=== PATIENT | male | born 1950 | race Caucasian/White ===

== ENCOUNTER → 2017-04-21 | Outpatient (CLI) | payer OTHER ==
[2016-07-19 11:10] VITALS: BP 98/54
[~2017-04-21] MED LIST: ALLO300T PO; EZET1TAB41 PO; FEBU80TA2 PO; LEVO500T59 PO; LIPITOR80 MG PO; METO50TA2 PO; WARF5TAB7 PO
--- NOTE | 2017-04-24 11:13 | PDOC ---
Provider Note Provider Note Pulmonary function test Patient underwent full pulmonary function tests at [facility] on April 21, 2017. Patient's FVC was 2.12 which was 47% predicted. His FEV1 was 1.47 which was 44% predicted. Patient's FEV1/ FVC ratio was reduced. There was good response to bronchodilators with 13% improvement in FVC and 16% improvement in FEV1. Lung volumes shows total lung capacity of 110% predicted and residual volume of 214% predicted. diffusion capacity was normal at 96% predicted . Impression 1. Moderate obstructive airway disease 2. Good response to bronchodilators 3. Lung volumes consistent with air trapping 4. Normal diffusion capacity. FADY LUNDY MD Apr 24, 2017 11:13
== END | disposition home or self-care (01) ==
LOC: PF 09:23
PROVIDERS: ATTEND Nurse Practitioner
DX: R06.09 Other forms of dyspnea (principal)
CPT/HCPCS: 94060; 94729

== ENCOUNTER 2017-05-03 09:23 | Inpatient (IN) | payer OTHER, MEDICARE ==
[~2017-05-03] VITALS: Ht 179.1 cm; Wt 97.7 kg
[~2017-05-03 09:23] MED LIST changes: +HYDROmorphone 2 MG/ML VIAL IV PRN; +IV RINGERS,LACTATED 1000ML 1,000 ML IV SCH; +LIDOCAINE 1% 1 ML SYRINGE. ID PRN; +METO25TA9 PO; +MORPHINE SULFATE 2 MG/ML DISP.SYRIN. IV PRN; +ONDANSETRON PF 4 MG/2 ML VIAL. IV PRN; +POTA20TA82 PO; +PROCHLORPERAZINE 10 MG/2 ML VIAL. IV PRN; +fentaNYL PF VIAL 100 MCG/2 ML VIAL IV PRN
[2017-05-03 10:30] LABS: CALCIUM 8.5 mg/dL (8.5-10.1); CREATININE 1.2 mg/dL (0.7-1.3); GFR 60.2; MAGNESIUM 2.3 mg/dL (1.8-2.4); POTASSIUM 4.2 mmol/L (3.5-5.1)
[2017-05-03 10:33] LABS: INR 1.6 (0.8-1.1); PROTHROMBIN TIME PATIENT 18.4 SEC (11.7-14.0)
[2017-05-03] MEDS ORDERED: LIDOCAINE 2% VISCOUS 15 ML SOLUTION. ONE (10:35)
[2017-05-03] MEDS ORDERED: BENZOCAINE ONE 20% MUCOSAL SPRAY. (10:35)
[2017-05-03] MEDS ORDERED: LIDOCAINE 2% TOPICAL JELLY 30GM TUBE. TP ONE (10:35)
[2017-05-03] MEDS ORDERED: SUCCINYLCHOLINE 200 MG/10 ML VIAL. ONE (10:48)
[2017-05-03] MEDS ORDERED: PROPOFOL 0 ML IV ONE (10:48)
[2017-05-03] MEDS: IV RINGERS,LACTATED 1000ML 1,000 ML IV SCH ×2 (11:01→19:01)
[2017-05-03] MEDS ORDERED: MIDAZOLAM HCL/PF 2 MG/2 ML VIAL. IV PRN (11:15)
[2017-05-03] MEDS ORDERED: 0.9 % SODIUM CHLORIDE 10 ML DISP.SYRIN. IV PRN (11:15)
[2017-05-03] MEDS ORDERED: LIDOCAINE 1% 1 ML SYRINGE. ID PRN (11:15)
[2017-05-03] MEDS ORDERED: fentaNYL PF VIAL 100 MCG/2 ML VIAL IV PRN ×2 (11:15)
[2017-05-03 12:00] VITALS: BP 145/51
[2017-05-03] MEDS ORDERED: FURO40TA4 PO (13:17)
--- NOTE | 2017-05-03 13:40 | PDOC ---
Provider Note Provider Note This is a 66 yo male, with a history of PAFIB, who was found to have atrial flutter with variable conduction at recent office visit. Patient scheduled for ENRIQUETA guided cardioversion today. Please see office note from 04/27/17 in physical chart for full H and P. INR noted to be subtherapeutic at 1.6. Procedure held. PE: general: NAD Lungs: CTA CV: S1, S2. IRR. Tele: a-flutter with variable rate. HR presently low 40's abd: soft/non-tender ext: warm. 2+ bilateral DP pulses. No edema neuro: alert and oriented Assessment 1. A-flutter 2. Subtherapeutic INR 3. Aortic valve replacement Plan: 1. Will initiate heparin infusion and admit overnight for anticoagulation therapy. Will proceed with ENRIQUETA guided cardioversion in am for atrial flutter. JAYY HUITRON APRN May 03, 2017 13:40
[2017-05-03] MEDS ORDERED: HEPARIN for IV BOLUS 10,000 UNIT/10 ML VIAL. IV PRN (14:15)
[2017-05-03] MEDS: HEPARIN 25,000UTS/500ML PREMIX 500 ML IV PRN (14:50)
[2017-05-03 15:02] VITALS: BP 144/54
[2017-05-03 19:25] VITALS: BP 147/66
[2017-05-03] MEDS ORDERED: WARFARIN 4 MG TABLET. PO ONE (22:00)
[2017-05-03 22:41] VITALS: BP 136/66
--- NOTE | 2017-05-04 00:51 | ACF ---
Admission Forms Criteria ATRIAL FIBRILLATION Clinical Indications for Admission to Inpatient Care (Place 'X' for any and all applicable criteria): Admission indicated for ANY ONE of the following(1)(2)(3)(4)(5) : [ ]I. Myocardial ischemia [ ]II. Dyspnea or hypoxemia [ ]III. Hemodynamic instability [ ]IV. Heart failure (e.g., pulmonary edema) (7) [ ]V. New-onset (less than 48 hours) atrial fibrillation with high risk for causing complications secondary to comorbidities (eg, symptomatic heart failure ) [ ]. Altered mental status [ ]VII. Syncope [ ]VIII. Patient has implantable cardioverter defibrillator that has fired more than once within past 24hr or needs immediate adjustment of settings that cannot be done other than in inpatient setting. (8) [ ]IX. Suspected accessory pathway (e.g., Ctqxc-Rgycqfguu-Memxk syndrome) on ECG [ ]X. Recent systemic thromboembolism (eg, stroke) [ ]XI. Medication toxicity (e.g., digitalis) causing arrhythmia(9) [ ]XII. Underlying medical condition that necessitates inpatient care (e.g., thyrotoxicosis, pneumonia) (10) [ ]XIII. Continuous ECG monitoring is required for condition causing arrhythmia (e.g., severe hyperkalemia, hypokalemia, acid-base disturbance).(11)(12)(13) [ ]XIV. Initiation of antiarrhythmic drug therapy is needed in patient at high risk of adverse effects as indicated by ANY ONE of the following: [ ]a) Significant structural heart disease (e.g., reduced ejection fraction, congenital heart disease, valvular heart disease) [ ]b) Prolonged QT interval [ ]c) Underlying sinus node or atrioventricular conduction disturbances [ ]d) Need for treatment with antiarrhythmic drugs that have significant proarrhythmic potential (e.g., dofetilide, sotalol, procainamide) [ ]e) Patient whose sinus rhythm has never been observed on ECG [ ]XV. Intolerable symptoms despite optimal outpatient treatment [X]XVI. Elective or urgent cardioversion that cannot be performed on outpatient basis or during observation care. [A] (Use also Atrial Fibrillation: Observation Care ) as appropriate.(14) [ ]XVII.Contraindications and/or Inappropriate clinical situations for Observational Care in patients with Atrial Fibrillation, when ANY ONE of the following is required: [ ]a) Patient with High risk of cardiac embolism (e.g, patients with previous cardiac embolism, LVEF < 40%, age >75 and patients with prosthetic valve) 18 [ ]b) Patient with Moderate risk including DM patient, CAD and patient aged 65-75 18 [ ]c) Patient with any change in cardiac biomarker especially troponin should be managed as high risk in an inpatient setting 19 [ ]d) Physician judgement irrespective of ECG and other diagnostic findings 20 [ ]XVIII.General contraindications and/or Inappropriate clinical situations for Observational Care in patients with Atrial Fibrillation, when ANY ONE of the following is required: [ ]a) Prediction of prolongation of LOS based on ANY ONE of the following may be considered as a contraindication for observational care 2, 3, 4, 5, 6, 7, 8, 9, 10, 11 [ ]i) Age > 65 yrs. [ ]ii) Patient arriving by ambulance [ ]iii) Patient with high acuity [ ]iv) Patient requiring vital sign monitoring [ ]v) Patient on IV medication [ ]b) Systolic blood pressures 180mmHg 3,12 [ ]c) Patient with altered mental status including delirium and other alteration of consciousness3 [ ]d) Patient whose discharge disposition will be to a senior care home or rehabilitation home should not be managed in Emergency Department Observation Unit. CMS rule requires 3 days hospital stay before such placement.3,13 [ ]e) Patient with failure to thrive due to broad array of etiologies 3,16,17 [ ]f) Inability to ambulate 3,14 Extended stay beyond goal length of stay may be needed for (1)(25)(26): [ ]a) Unstable comorbidities [ ]b) Persistently uncontrolled atrial fibrillation or other arrhythmias [ ]c) Acute thromboembolic event (e.g., stroke, limb ischemia) [ ]d) Need for inpatient attainment of full anticoagulation The original [employer] content created by [employer] has been revised. The portions of the content which have been revised are identified through the use of italic text or in bold, and [facility] has neither reviewed nor approved the modified material. All other unmodified content is copyright [employer]. Please see references footnoted in the original [facility] edition 2016 Admission Criteria Met?: Yes KODY WILLIAMSON May 04, 2017 00:51
[2017-05-04 02:57] VITALS: BP 120/56
[2017-05-04 04:46] LABS: HEMATOCRIT 36.8 % (39.0-53.0); HEMOGLOBIN 12.8 g/dL (13.0-17.5); RED BLOOD COUNT 4.07 x10^6/uL (4.30-5.70); RED CELL DISTRIBUTION WIDTH 14.8 % (11.5-14.5); WHITE BLOOD COUNT 4.1 x10^3/uL (4.0-11.0)
[2017-05-04] MEDS: ANTI-COAG MONITOR BY PHARMACY. MC PRN (05:37)
--- NOTE | 2017-05-04 06:10 | EKG ---
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
[2017-05-04 07:00] VITALS: BP 158/65
[2017-05-04] MEDS ORDERED: IV RINGERS,LACTATED 1000ML 1,000 ML IV SCH (07:00)
[2017-05-04] MEDS ORDERED: PROCHLORPERAZINE 10 MG/2 ML VIAL. IV PRN (07:00)
[2017-05-04] MEDS ORDERED: MORPHINE SULFATE 2 MG/ML DISP.SYRIN. IV PRN (07:00)
[2017-05-04] MEDS ORDERED: HYDROmorphone 2 MG/ML VIAL IV PRN (07:00)
[2017-05-04] MEDS ORDERED: LIDOCAINE 1% 1 ML SYRINGE. ID PRN (07:00)
[2017-05-04] MEDS ORDERED: fentaNYL PF VIAL 100 MCG/2 ML VIAL IV PRN ×2 (07:00)
[2017-05-04] MEDS ORDERED: ONDANSETRON PF 4 MG/2 ML VIAL. IV PRN (07:00)
[2017-05-04] MEDS: HEPARIN 25,000UTS/500ML PREMIX 500 ML IV PRN (09:56)
[2017-05-04 10:02] LABS: INR 1.6 (0.8-1.1); PROTHROMBIN TIME PATIENT 17.9 SEC (11.7-14.0)
[2017-05-04 11:00] VITALS: BP 159/75
--- NOTE | 2017-05-04 12:15 | PDOC ---
CARDIO Progress Notes Date and Time Date of Service 05/04/17 Time of Evaluation 1110 Subjective Subjective: No Chest Pain, No shortness of breath Vitals Vitals Vital Signs Date Time Temp Pulse Resp B/P (MAP) Pulse Ox O2 Delivery O2 Flow Rate FiO2 05/04/17 11:00 97.4 49 18 159/75 (103) 95 Room Air 97.4 05/04/17 08:00 2.0 Weight Weight [ ] Input and Output Intake and Output Intake and Output 05/04/17 07:00 Intake Total 260 ml Output Total 1050 ml Balance -790 ml Intake Oral 200 ml IV Total 60 ml Output Urine Total 1050 ml # Voids 3 Laboratory Labs Laboratory Tests Test 05/03/17 20:41 05/04/17 04:00 05/04/17 09:30 05/04/17 11:20 Heparin Anti-Xa Act, Unfractionated 0.13 IU/mL (0.30-0.70) 0.25 IU/mL (0.30-0.70) 0.32 IU/mL (0.30-0.70) White Blood Count 4.1 x10^3/uL (4.0-11.0) Red Blood Count 4.07 x10^6/uL (4.30-5.70) Hemoglobin 12.8 g/dL (13.0-17.5) Hematocrit 36.8 % (39.0-53.0) Mean Corpuscular Volume 90 fL (79-100) Mean Corpuscular Hemoglobin 31 pg (25-35) Mean Corpuscular Hemoglobin Concent 35 g/dL (31-37) Red Cell Distribution Width 14.8 % (11.5-14.5) Platelet Count 86 x10^3/uL (140-400) Prothrombin Time 17.9 SEC (11.7-14.0) Prothromb Time International Ratio 1.6 (0.8-1.1) Physical Exam HEENT: Neck Supple W Full Motion Chest: Symmetric LUNGS: Clear to Auscultation Heart: S1S2, no murmurs, other (IRRR; tele: Aflutter with variable conduction. Rate presently in upper 40's. Lows in the mid 30's overnight) Abdomen: Soft N/T Extremities: No Edema, No Calf Tenderness Neurology: alert, oriented, follow commands Assessment Assessment 1. A-flutter 2. Subtherapeutic INR 3. Mechanical aortic valve replacement; on warfarin therapy Recommendations Resume warfarin; pharmacy to manage Continue heparin until INR is therapeutic Will hold off on cardioversion today given significant bradycardia, despite withholding BB. Primary nail cutter to discuss case with EP. Avoid AV leatha blocking agents. Supportive care JAYY HUITRON APRN May 04, 2017 12:15
[2017-05-04] MEDS: FUROSEMIDE 40 MG TABLET. PO SCH ×2 (14:07→17:22)
[2017-05-04] MEDS: ALLOPURINOL 300 MG TABLET. PO SCH (14:07)
[2017-05-04] MEDS: POTASSIUM CHLORIDE 20 MEQ TABLET.ER. PO SCH (14:07)
[2017-05-04 15:00] VITALS: BP_SYST 180; BP_SYST 187; BP_DIAS 122; BP_DIAS 66
[2017-05-04] MEDS ORDERED: WARFARIN 5 MG TABLET. PO SCH (16:00)
[2017-05-04 19:30] VITALS: BP 167/63
[2017-05-04 23:35] VITALS: BP 125/56
[2017-05-05] VITALS (13 sets, daily range): BP systolic 91–182; BP diastolic 43–82
[2017-05-05] MEDS: HEPARIN 25,000UTS/500ML PREMIX 500 ML IV PRN ×2 (01:09→19:59)
[2017-05-05] MEDS: ALLOPURINOL 300 MG TABLET. PO SCH (08:46)
[2017-05-05] MEDS: FUROSEMIDE 40 MG TABLET. PO SCH ×2 (09:00→14:33)
[2017-05-05 11:35] LABS: INR 1.6 (0.8-1.1); PROTHROMBIN TIME PATIENT 17.7 SEC (11.7-14.0)
[2017-05-05] MEDS: ANTI-COAG MONITOR BY PHARMACY. MC PRN (12:19)
[2017-05-05] MEDS ORDERED: LIDOCAINE 2% TOPICAL JELLY 30GM TUBE. TP ONE ×2 (12:33→13:00)
[2017-05-05] MEDS ORDERED: BENZOCAINE ONE 20% MUCOSAL SPRAY. (12:44)
[2017-05-05] MEDS ORDERED: LIDOCAINE 2% 100 MG/5 ML SYRINGE. ONE (12:47)
[2017-05-05] MEDS ORDERED: GLYCOPYRROLATE 1 MG/5 ML VIAL. ONE (12:47)
[2017-05-05] MEDS ORDERED: PROPOFOL 0 ML IV ONE (12:47)
[2017-05-05] MEDS ORDERED: PROPOFOL 20 ML IV ONE (12:50)
[2017-05-05] MEDS ORDERED: BENZOCAINE ONE 20% MUCOSAL SPRAY. MM (13:00)
--- NOTE | 2017-05-05 14:21 | EKG ---
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
[2017-05-05] MEDS: POTASSIUM CHLORIDE 20 MEQ TABLET.ER. PO SCH (14:33)
[2017-05-05] MEDS ORDERED: IV RINGERS,LACTATED 1000ML 1,000 ML IV SCH (15:30)
[2017-05-05] MEDS ORDERED: WARFARIN 7.5 MG TABLET. PO ONE (16:00)
[2017-05-05] MEDS ORDERED: hydrALAZINE 20 MG/ML VIAL. IVP PRN (16:15)
--- NOTE | 2017-05-05 19:29 | PDOC4 ---
OPERATIVE NOTE: Cardioversion. The patient is a 66-year-old male with atrial flutter. ENRIQUETA and attempt at cardioversion was performed today with the assistance of the anesthesiology service. Transesophageal echocardiogram showed no evidence of thrombus. We'll therefore proceed with an attempted cardioversion. We administered 200 J of synchronized energy to the patient. This unfortunately was unsuccessful in converting the patient out of atrial flutter. His rhythm remained in atrial flutter with stable blood pressure. He awoke normally from the procedure. Conclusions. Unsuccessful attempted electrical cardioversion of atrial flutter. KATHLEEN FREGOSO MD May 05, 2017 19:29
[2017-05-06 03:30] VITALS: BP 121/59
[2017-05-06 07:00] VITALS: BP 177/72
[2017-05-06] MEDS: POTASSIUM CHLORIDE 20 MEQ TABLET.ER. PO SCH (08:00)
[2017-05-06 08:13] LABS: INR 1.6 (0.8-1.1); PROTHROMBIN TIME PATIENT 17.8 SEC (11.7-14.0)
[2017-05-06] MEDS: ALLOPURINOL 300 MG TABLET. PO SCH (09:42)
[2017-05-06] MEDS: FUROSEMIDE 40 MG TABLET. PO SCH ×2 (09:42→16:23)
[2017-05-06 11:00] VITALS: BP 144/68
[2017-05-06 15:00] VITALS: BP 152/76
[2017-05-06] MEDS ORDERED: ENOX40DI SQ (15:04)
[2017-05-06] MEDS ORDERED: WARF7.5T48 PO (15:04)
--- NOTE | 2017-05-06 15:06 | DISCH ---
DISCHARGE INSTRUCTIONS Condition on Discharge Condition on Discharge: Stable Activity After Discharge Activity Instructions for Disc: Activity as tolerated Weight Bearing Status after Di: Full weight bearing, As tolerated Diet after Discharge Diet after Discharge: Cardiac Checks after Discharge DC Comment: Check INR on Tuesday Contacting the DRKermit after DC Call your doctor for: Concerns you may have JAYY HUITRON APRN May 06, 2017 15:05
[2017-05-06] MEDS ORDERED: WARFARIN 10 MG TABLET. PO ONE (16:00)
--- NOTE | 2017-05-09 21:04 | PDOC3 ---
Discharge Summary Visit Information Date of Admission: May 03, 2017 Date of Discharge: May 06, 2017 Admitting Diagnosis: Atrial Flutter. Subtherapeutic INR Final Diagnosis Atrial Flutter Brief Hospital Course Allergies Allergies Coded Allergies Type Severity Reaction Last Updated Verified amoxicillin Allergy Intermediate N/V, itching 05/03/17 Yes ampicillin Allergy Intermediate N/V itching 05/03/17 Yes penicillin Allergy Intermediate n/v itching 05/03/17 Yes Brief Hospital Course Mr. Ambriz is a 66 year old male who presented to the office for routine follow- up of bradycardia and dyspnea. He has a history of atrial fibrillation and was previously on metoprolol succinate 50mg, which was decreased in half his last visit due to bradycardia episodes as this was thought to be a possible contributing factor to his fatigue. He also underwent a pulmonary function evaluation, which revealed moderate to severe obstructive disease with a good bronchodilator response. An in-office EKG revealed a sinus rhythm with a first- degree AV block and a Mobitz type I block. Subsequently, he was then found to have atrial flutter with variable conduction. Patient was set up with a two- week event monitor to determine burden. Monitor revealed sustained 3:1 atrial flutter with variable conduction and patient was scheduled for outpatient ENRIQUETA guided cardioversion. Labs checked day of procedure, which noted subtherapeutic INR at 1.6. Procedure was postponed and patient was admitted overnight with initiation of a heparin infusion. Patient was to have cardioversion the following day, but was held due to atrial flutter with variable conduction and slow ventricular rate with heart rates maintaining in the upper 30's to low 40' s. Metoprolol discontinued. Heart rate recovered to the mid-50's the following day and patient underwent ENRIQUETA guided cardioversion, which was unsuccessful in obtaining sinus rhythm. Patient converted to a 2:1 atrial flutter. Rate continued to be mildly bradycardiac, for which he was asymptomatic. Was monitored overnight. No further significant bradycardia noted. Remained in 2:1 atrial flutter. Case discussed with EP, Dr. Fierro to determine optimal antiarrhythmic therapy. Recommend outpatient echocardiogram and EP evaluation prior to initiation of antiarrhythmic therapy. Echocardiogram scheduled for next week. Patient will be contacted by Dr. Fierro's office on Tuesday to schedule appointment. This was discussed with the patient and his . On warfarin due to mechanical aortic valve replacement. INR remained at 1.6 despite increasing warfarin dosing. Heparin infusion discontinued. Patient discharged with treatment dosing Lovenox for over the weekend with INR to be drawn on Tuesday. Injection teaching provided to . Patient to follow up with Dr. Sharma in 2 weeks. Discharge Information Condition at Discharge: Stable Follow Up: Weeks (2) Disposition/Orders: D/C to Home Scheduled Allopurinol (Allopurinol), 1 TAB PO DAILY, (Reported) Enoxaparin Sodium (Lovenox), 100 MG SQ Q12HR Furosemide (Furosemide), 40 MG PO BID, (Reported) Potassium Chloride (Potassium Chloride), 20 MEQ PO DAILY, (Reported) Warfarin Sodium (Coumadin), 1 TAB PO DAILY Discontinued Medications Metoprolol Succinate (Metoprolol Succinate ( Xl )), 1 TAB PO DAILY, (Reported) Warfarin Sodium (Warfarin Sodium), 5 MG PO DAILY, (Reported) JAYY HUITRON APRN May 09, 2017 21:04
--- NOTE | 2017-05-11 11:57 | CARD ---
APPROVED REPORT EXAM: Transesophageal echocardiogram with color flow Doppler. INDICATION Atrial Fibrillation Reason For Test : Rule out Intracardiac Thrombus. PROCEDURE After obtaining informed consent, patient underwent transesophageal echo in the PACU. Type of Sedation : Conscious Sedation Sedation was provided by anesthesiologist, see EMR for medications administered. Sedation was achieved with Propofol 180 intravenously. Transesophageal probe was inserted and advanced into esophagus by Johnny Combs MD. The ENRIQUETA was performed without complications. Synchronized Cardioversion attempted: Unsuccessful Rhythm following Synchronized Cardioversion: Atrial flutter Throughout the procedure, the blood pressure, pulse oximetry, cardiac rhythm, and rate were monitored . The patient tolerated the procedure without adverse effects. Recovery from conscious sedation was une ventful and vital signs were stable. LEFT VENTRICLE The left ventricle is normal size. There is normal left ventricular wall thickness. The left ventricu lar systolic function is normal and the ejection fraction is within normal range. The Ejection Fracti on is 55-60%. There is normal LV segmental wall motion. RIGHT VENTRICLE The right ventricle is normal size. There is normal right ventricular wall thickness. The right ventr icular systolic function is normal. ATRIA The left atrium is mildly dilated. The right atrium is moderately dilated. The interatrial septum is intact with no evidence for an atrial septal defect or patent foramen ovale as noted on 2-D or Dopple r imaging. There is no thrombus noted in the left atrial appendage. AORTIC VALVE There is a mechanical aortic valve prosthesis. The prosthetic aortic valve appears to open normally a nd is well seated. No significant regurgitation noted. MITRAL VALVE Mitral annular calcification is moderate. The mitral valve leaflets are thickened and calcified. Ther e is no evidence of mitral valve prolapse. There is no mitral valve stenosis. Doppler and Color Flow revealed mild mitral regurgitation. TRICUSPID VALVE Doppler and Color Flow revealed moderate to moderately severe tricuspid regurgitation. PULMONIC VALVE The pulmonic valve is not visualized, unable to assess. GREAT VESSELS The aortic root is normal in size. The ascending aorta is normal in size. The IVC is normal in size a nd collapses >50% with inspiration. Critical Notification Critical Value: No <Conclusion> The left ventricle is normal size. The left ventricular systolic function is normal and the ejection fraction is within normal range. The Ejection Fraction is 55-60%. The left atrium is mildly dilated. The right atrium is moderately dilated. There is no thrombus noted in the left atrial appendage. There is a mechanical aortic valve prosthesis. The prosthetic aortic valve appears to open normally and is well seated. No significant regurgitation noted. Doppler and Color Flow revealed mild mitral regurgitation. Doppler and Color Flow revealed moderate to moderately severe tricuspid regurgitation.
== END 2017-05-06 16:40 | disposition home or self-care (01) | DRG 310 ==
LOC: SURG 09:23 → 2 NORTH 11:16
PROVIDERS: ADMIT Internal Medicine Cardiovascular Disease; ATTEND Internal Medicine Cardiovascular Disease
PROC: B246ZZ4 Ultrasonography of Right and Left Heart, Transesophageal (ICD-10-PCS; principal; 2017-05-03)
PROC: B246ZZ4 Ultrasonography of Right and Left Heart, Transesophageal (ICD-10-PCS; 2017-05-05)
PROC: 5A2204Z Restoration of Cardiac Rhythm, Single (ICD-10-PCS; 2017-05-05 13:00)
DX: I48.92 Unspecified atrial flutter (principal); I48.0 Paroxysmal atrial fibrillation; Z79.01 Long term (current) use of anticoagulants; Z95.2 Presence of prosthetic heart valve
CPT/HCPCS: 36415; 80048; 83735; 85027; 85520; 85610; 92960; 93005; 93312; 93325; C1887; J0330; J0360; J1644; J1650; J2704; J3490; J7120

== ENCOUNTER → 2017-05-16 | Outpatient (CLI) | payer OTHER ==
[2017-05-06 15:00] VITALS: BP 152/76
[~2017-05-16] MED LIST changes: +ENOX40DI SQ; +FURO40TA4 PO; -HYDROmorphone 2 MG/ML VIAL IV PRN; -IV RINGERS,LACTATED 1000ML 1,000 ML IV SCH; -LIDOCAINE 1% 1 ML SYRINGE. ID PRN; -MORPHINE SULFATE 2 MG/ML DISP.SYRIN. IV PRN; -ONDANSETRON PF 4 MG/2 ML VIAL. IV PRN; -PROCHLORPERAZINE 10 MG/2 ML VIAL. IV PRN; +WARF7.5T48 PO; -fentaNYL PF VIAL 100 MCG/2 ML VIAL IV PRN
--- NOTE | 2017-05-16 12:51 | CARD ---
APPROVED REPORT EXAM: Two-dimensional and M-mode echocardiogram with Doppler and color Doppler. Other Information Quality : Good INDICATION Aortic Valve Disease Atrial Fibrillation Surgery/Intervention Status/Post Aortic Valve Replacement: Mechanical Type: [facility] 2D DIMENSIONS RVDd2.5 (2.9-3.5cm)Left Atrium(2D)4.6 (1.6-4.0cm) IVSd0.9 (0.7-1.1cm)Aortic Root(2D)2.2 (2.0-3.7cm) LVDd5.1 (3.9-5.9cm)LVOT Diameter2.1 (1.8-2.4cm) PWd0.9 (0.7-1.1cm)LVDs3.4 (2.5-4.0cm) FS (%) 25.0 %SV77.2 ml LVEF(%)50.0 (>50%) Aortic Valve AoV Peak Torsten.294.7cm/sAoV VTI54.4cm AO Peak GR.34.7mmHgLVOT Peak Torsten.179.3cm/s AO Mean GR.17mmHgAVA (VMAX)2.05cm2 SANG (VTI)2.30cm2 Mitral Valve MV E Kmvjjgph550.1cm/sMV DECEL [id number] MV A Qftehuqb933.4cm/sE/A Ratio1.1 Tricuspid Valve TR P. Hdqhalqr638wo/sRAP [id number] TR Peak Gr.14bkJsGQYN30pnBe LEFT VENTRICLE The left ventricle is normal size. There is normal left ventricular wall thickness. Left ventricle sy stolic function is low normal. The Ejection Fraction is 50-55%. There is normal LV segmental wall mot ion. Septal motion consistent with post-operative state. Tissue Doppler imaging reveals moderate left ventricular diastolic dysfunction. RIGHT VENTRICLE The right ventricle is normal size. The right ventricular systolic function is normal. ATRIA The left atrium is mildly dilated. The right atrium is mildly dilated. The interatrial septum is inta ct with no evidence for an atrial septal defect or patent foramen ovale as noted on 2-D or Doppler im aging. AORTIC VALVE Doppler and Color Flow revealed no significant aortic regurgitation. There is mild prosthetic valvula r aortic stenosis, MG 17 mm Hg. AV prosthesis is not well visualized. MITRAL VALVE The mitral valve is calcified but opens well. Mitral annular calcification is mild. There is no evide nce of mitral valve prolapse. There is no mitral valve stenosis. Doppler and Color-flow revealed trac e mitral regurgitation. TRICUSPID VALVE The tricuspid valve is normal in structure and function. Doppler and Color Flow revealed trace to mil d tricuspid regurgitation. There is moderate pulmonary hypertension. The PA pressure was estimated at 49 mmHg. There is no tricuspid valve stenosis. PULMONIC VALVE Doppler and Color Flow revealed mild pulmonic valvular regurgitation. There is no pulmonic valvular s tenosis. GREAT VESSELS The aortic root is normal in size. The ascending aorta is not well seen. The IVC is normal in size an d collapses >50% with inspiration. PERICARDIAL EFFUSION There is no evidence of significant pericardial effusion. Critical Notification Critical Value: No <Conclusion> Left ventricle systolic function is low normal. The Ejection Fraction is 50-55%. There is normal LV segmental wall motion. Septal motion consistent with post-operative state. Doppler and Color Flow revealed trace to mild tricuspid regurgitation. There is moderate pulmonary hy pertension. The PA pressure was estimated at 49 mmHg.
== END | disposition home or self-care (01) ==
LOC: ECHO 10:26
PROVIDERS: ATTEND Internal Medicine Cardiovascular Disease
DX: I08.1 Rheumatic disorders of both mitral and tricuspid valves (principal)
CPT/HCPCS: 93306

== ENCOUNTER → 2017-06-21 | Outpatient (CLI) | payer OTHER ==
[~2017-06-21] MED LIST changes: +ACET500T68 PO; +DOCU-109 PO
--- NOTE | 2017-06-21 15:29 | RAD ---
Exam performed: CT chest without contrast. History: Chest swelling, status post pacemaker placement. Date of service: 06/21/17. Comparison: None available Technique: Contiguous helical acquisitions are obtained through the chest without IV contrast. Sagittal and coronal reformatted images are obtained and reviewed. Findings: Structures at the thoracic inlet including both lobes of thyroid gland appear normal. Lack of IV contrast limits evaluation of neck and intrathoracic great vessels, however they appear grossly normal in course and caliber. Diffuse atheromatous aortic and coronary calcification seen. The heart size is within limits of normal without pericardial effusion. The lungs are essentially clear. No pleural effusion or pneumothorax. There is marked elevation of the left hemidiaphragm with underlying linear left basilar atelectasis. Limited evaluation of the upper abdominal structures is unremarkable. Previous median sternotomy. No definite soft tissue swelling is seen in the left chest wall adjacent to the pacemaker battery pack. There is a tiny 8 mm soft tissue density nodule in the left lower chest wall (axial image 44, series 2.) Impression: Elevated left hemidiaphragm with underlying atelectasis. Diffuse atheromatous aortic and coronary calcification. Tiny 8 mm soft tissue density nodule in the left chest wall. The etiology of this is not clear and may be evaluated by ultrasound. PQRS Compliance Statement: One or more of the following individualized dose reduction techniques were utilized for this examination: 1. Automated exposure control 2. Adjustment of the mA and/or kV according to patient size 3. Use of iterative reconstruction technique
== END | disposition home or self-care (01) ==
LOC: CT 14:08
PROVIDERS: ATTEND Nurse Practitioner
DX: R22.2 Localized swelling, mass and lump, trunk (principal); Z95.0 Presence of cardiac pacemaker
CPT/HCPCS: 71250

== ENCOUNTER → 2017-12-09 | Outpatient (CLI) | payer OTHER, MEDICARE | END | disposition home or self-care (01) | LOC: ECHO 07:34 | DX: I08.0 Rheumatic disorders of both mitral and aortic valves (principal); Z95.4 Presence of other heart-valve replacement | CPT/HCPCS: 93306 ==

== ENCOUNTER 2018-05-22 07:25 | Day surgery (SDC) | payer OTHER, MEDICARE ==
[~2018-05-22 07:25] MED LIST changes: -ACET500T68 PO; -ALLO300T PO; -DOCU-109 PO; -ENOX40DI SQ; -EZET1TAB41 PO; -FEBU80TA2 PO; -FURO40TA4 PO; -LEVO500T59 PO; +LIDOCAINE 1% PF 2 ML VIAL. ID; -LIPITOR80 MG PO; -METO25TA9 PO; -METO50TA2 PO; +MORPHINE SULFATE 2 MG/ML DISP.SYRIN. IV; +ONDANSETRON PF 4 MG/2 ML VIAL. IV; -POTA20TA82 PO; +PROCHLORPERAZINE 10 MG/2 ML VIAL. IV; -WARF5TAB7 PO; -WARF7.5T48 PO; +fentaNYL PF VIAL 100 MCG/2 ML VIAL IV
[2018-05-22] MEDS: IV RINGERS,LACTATED 1000ML 1,000 ML IV (10:25)
[2018-05-22] MEDS ORDERED: PROPOFOL 20 ML IV (11:12)
[2018-05-22] MEDS: LIDOCAINE 2% VISCOUS 15 ML SOLUTION. SWSW (13:09)
[2018-05-22] MEDS: BENZOCAINE ONE 20% MUCOSAL SPRAY. MM (13:10)
[2018-05-22] MEDS: LIDOCAINE 2% TOPICAL JELLY 5GM TUBE. TP (13:11)
== END 2018-05-22 13:45 | disposition home or self-care (01) ==
LOC: SURG 07:25
DX: I08.1 Rheumatic disorders of both mitral and tricuspid valves (principal); Z95.2 Presence of prosthetic heart valve; Z95.0 Presence of cardiac pacemaker; Z88.0 Allergy status to penicillin; Z88.1 Allergy status to other antibiotic agents; Z82.49 Family history of ischemic heart disease and other diseases of the circulatory system; Z80.1 Family history of malignant neoplasm of trachea, bronchus and lung; I25.10 Atherosclerotic heart disease of native coronary artery without angina pectoris; E78.00 Pure hypercholesterolemia, unspecified; I48.91 Unspecified atrial fibrillation; I10 Essential (primary) hypertension; J44.9 Chronic obstructive pulmonary disease, unspecified; E66.9 Obesity, unspecified; M19.90 Unspecified osteoarthritis, unspecified site; M10.9 Gout, unspecified; Z72.89 Other problems related to lifestyle; Z87.891 Personal history of nicotine dependence; Z85.71 Personal history of Hodgkin lymphoma; Z98.890 Other specified postprocedural states; Z79.899 Other long term (current) drug therapy
CPT/HCPCS: 76376; 93312; 93320; 93325; 93925; J2704

== ENCOUNTER → 2019-04-20 | Outpatient (CLI) | payer OTHER ==
[2018-05-22 13:32] VITALS: BP 137/67
[~2019-04-20] MED LIST changes: +ACET500T68 PO; +ALLO100T PO; +ALLO300T PO; +CLIN300C8 PO; +CYCL10TA2 PO; +DOCU-109 PO; +ENOX40DI SQ; +EZET1TAB41 PO; +FEBU80TA2 PO; +FURO40TA4 PO; +LEVO500T59 PO; -LIDOCAINE 1% PF 2 ML VIAL. ID; +LIPITOR80 MG PO; +LISI10TA2 PO; +METO-239 PO; +METO-269 PO; +METO50TA6 PO; -MORPHINE SULFATE 2 MG/ML DISP.SYRIN. IV; -ONDANSETRON PF 4 MG/2 ML VIAL. IV; +POTA20TA82 PO; -PROCHLORPERAZINE 10 MG/2 ML VIAL. IV; +WARF-31 PO; +WARF-78 PO; +WARF4TAB68 PO; +WARF7.5T48 PO; -fentaNYL PF VIAL 100 MCG/2 ML VIAL IV
--- NOTE | 2019-04-20 10:04 | CARD ---
MR#: [id number] Date of Study: 04/20/2019 Ordering Physician: SHAWNA RUBI, Referring Physician: SHAWNA RUBI, Tech: Jen Rodriguez JADIEL APPROVED REPORT EXAM: Two-dimensional and M-mode echocardiogram with Doppler and color Doppler. Other Information Quality : Technically LimitedHR: 70bpm Rhythm : PacemakerTechnically limited study due to body habitus and CABG. INDICATION Aortic valve replacement Surgery/Intervention Status/Post Aortic Valve Replacement: 2D DIMENSIONS RVDd3.0 (2.9-3.5cm)Left Atrium(2D)3.4 (1.6-4.0cm) IVSd1.1 (0.7-1.1cm)Aortic Root(2D)2.4 (2.0-3.7cm) LVDd3.7 (3.9-5.9cm)LVOT Diameter1.8 (1.8-2.4cm) PWd1.1 (0.7-1.1cm)LVDs2.7 (2.5-4.0cm) FS (%) 27.1 %SV30.6 ml LVEF(%)53.6 (>50%) Aortic Valve AoV Peak Torsten.226.4cm/sAoV VTI43.6cm AO Peak GR.20.5mmHgLVOT Peak Torsten.141.1cm/s AO Mean GR.11mmHgAVA (VMAX)1.56cm2 SANG (VTI)1.60cm2 Mitral Valve MV E Fwxbxhyd765.7cm/sMV E Peak Gr.14mmHg MV DECEL [id number] A Pzmymxsb667.4cm/s MV E Mean Gr.6mmHgE/A Ratio1.4 Pulmonary Valve PV Peak Uspubief868.0cm/s Tricuspid Valve TR P. [id number]/sRAP [id number] TR Peak Gr.76yjOaATJX60pgIq LEFT VENTRICLE The left ventricle is normal size. There is mild concentric left ventricular hypertrophy. Left ventri brandin systolic function is low normal. The Ejection Fraction is 50%. Septal motion consistent with post -operative state. RIGHT VENTRICLE The right ventricle is normal size. There is normal right ventricular wall thickness. Systolic functi on is mildly reduced. Pacer lead noted in RV/RA. ATRIA The left atrium size is normal. The right atrium size is normal. The interatrial septum is intact wit h no evidence for an atrial septal defect or patent foramen ovale as noted on 2-D or Doppler imaging. AORTIC VALVE Doppler and Color Flow revealed trace to mild aortic regurgitation. Aortic valve replaced with maximu m a pressure gradient of 21 mmHg and mean pressure gradient of 11 mmHg. There is a mechanical aortic valve prosthesis. Appears well seated and functioning well. MITRAL VALVE Mitral annular calcification is moderate to severe. There is no evidence of mitral valve prolapse. Th ere is moderate mitral valve stenosis. Calculated mitral valve area is 1.3 cm2 with maximum pressure gradient of 16 mmHg and mean pressure gradient of 8 mmHg. Doppler and Color-flow revealed mild mitral regurgitation. TRICUSPID VALVE The tricuspid valve is normal in structure and function. Doppler and Color Flow revealed mild tricusp id regurgitation. The PA pressure was estimated at 37 mmHg. There is no tricuspid valve prolapse or v egetation. There is no tricuspid valve stenosis. PULMONIC VALVE The pulmonic valve is not well visualized. GREAT VESSELS The aortic root is normal in size. The ascending aorta is normal in size. The IVC is normal in size a nd collapses >50% with inspiration. PERICARDIAL EFFUSION There is no evidence of significant pericardial effusion. Critical Notification Critical Value: No <Conclusion> Left ventricle systolic function is low normal. The Ejection Fraction is 50%. Septal motion consistent with post-operative state. Pacer lead noted in RV/RA. Mechanical aortic valve prosthesis appears well seated and functioning well with mean pressure gradie nt of 11 mmHg. Moderate mitral valve stenosis with mean pressure gradient of 8 mmHg. Mild mitral regurgitation. Mild tricuspid regurgitation. The PA pressure was estimated at 37 mmHg. There is no evidence of significant pericardial effusion. Signed by : Jarrett Curran, Electronically Approved : 04/20/2019 10:03:54
== END | disposition home or self-care (01) ==
LOC: ECHO 07:20
PROVIDERS: ATTEND Internal Medicine Cardiovascular Disease
DX: I08.3 Combined rheumatic disorders of mitral, aortic and tricuspid valves (principal); I11.9 Hypertensive heart disease without heart failure; Z95.4 Presence of other heart-valve replacement; Z95.1 Presence of aortocoronary bypass graft
CPT/HCPCS: 93306

== ENCOUNTER → 2021-09-22 | Outpatient (CLI) | payer OTHER, MEDICARE ==
[2020-12-08 11:00] VITALS: BP 121/55
[~2021-09-22] MED LIST changes: +ACET325T9 PO; +ASPI-886 PO; +CLIN-94 PO; -CLIN300C8 PO; +CRESTOR40 MG PO; +CYCL10TA19 PO; -CYCL10TA2 PO; +LISI10TA16 PO; -LISI10TA2 PO; +POTA20TA4 PO; -POTA20TA82 PO; +PRED20TA PO; -WARF-78 PO; +WARF5TAB2 PO
[2021-09-22 16:00] LABS: BASO # 0.1 x10^3/uL (0.0-0.2); BASO % 1 % (0-3); EOS # 0.2 x10^3/uL (0.0-0.7); EOS % 4 % (0-3); HEMATOCRIT 35.4 % (39.0-53.0); HEMOGLOBIN 11.6 g/dL (13.0-17.5); LYMPH # 0.5 x10^3/uL (1.0-4.8); LYMPH % 11 % (24-48); MEAN CORPUSCULAR HEMOGLOBIN 30 pg (25-35); MEAN CORPUSCULAR HGB CONC 33 g/dL (31-37); MEAN CORPUSCULAR VOLUME 91 fL (79-100); MONO # 0.4 x10^3/uL (0.0-1.1); MONO % 8 % (0-9); NEUT # 3.8 x10^3/uL (1.8-7.7); NEUT % 76 % (31-73); PLATELET COUNT 148 x10^3/uL (140-400); RED BLOOD COUNT 3.88 x10^6/uL (4.30-5.70); RED CELL DISTRIBUTION WIDTH 15.7 % (11.5-14.5)
== END ==
LOC: ONCLAB 15:36
PROVIDERS: ATTEND Internal Medicine Hematology & Oncology
DX: C81.00 Nodular lymphocyte predominant Hodgkin lymphoma, unspecified site (principal)
CPT/HCPCS: 36415; 85025